=== PATIENT | female | born 1995 | race Caucasian/White ===

== ENCOUNTER 2018-11-29 22:33 | Inpatient (IN) | payer BC, OTHER ==
[2018-11-30] MEDS ORDERED: CLINDAMYCIN 600MG PREMIX IVPB 600 MG/50 ML BAG IVPB ONE ×2 (01:21→01:48)
--- NOTE | 2018-11-30 01:30 | PDOC ---
History of Present Illness - General Chief Complaint: Redness To Affected Area Stated Complaint: LT ANKLE SWELLING/PAIN Time Seen by Provider: 11/30/18 00:40 - History of Present Illness Initial Comments: 11/30/18 01:39 23 y/o F no significant pmhx presents to the ED with 2 days of redness and swelling on her left leg after getting a tattoo. She began to feel a burning sensation in her left lower extremity where she got the tattoo done. She denies any fevers, chills, nausea, vomiting 11/30/18 01:43 Past History - Past Medical History Allergies/Adverse Reactions: Allergies Allergy/AdvReac Type Severity Reaction Status Date / Time No Known Allergies Allergy Verified 11/29/18 22:48 COPD: No - Suicide/Smoking/Psychosocial Hx Smoking History: Never smoked Review of Systems - Review of Systems Constitutional: No: Chills, Fever HEENTM: No: Eye Pain, Blurred Vision Respiratory: No: Cough, Shortness of Breath Cardiac (ROS): No: Chest Pain ABD/GI: No: Abdominal Distended, Diarrhea : No: Burning, Dysuria Musculoskeletal: No: Back Pain Integumentary: Yes: Symptoms Reported Neurological: No: Headache, Numbness *Physical Exam - Vital Signs Last Vital Signs Temp Pulse Resp BP Pulse Ox 99.4 F 115 H 20 183/95 H 96 11/29/18 22:48 11/29/18 22:48 11/29/18 22:48 11/29/18 22:48 11/29/18 22:48 - Physical Exam Comments: 11/30/18 02:06 GENERAL: Awake, alert, and fully oriented, in no acute distress HEAD: No signs of trauma, normocephalic, atraumatic EYES: PERRLA, EOMI, sclera anicteric, conjunctiva clear ENT: Auricles normal inspection, hearing grossly normal, nares patent, oropharynx clear without exudates. Moist mucosa NECK: Normal ROM, supple, no lymphadenopathy, JVD, or masses LUNGS: No distress, speaks full sentences, clear to auscultation bilaterally HEART: Regular rate and rhythm, normal S1 and S2, no murmurs, rubs or gallops, peripheral pulses normal and equal bilaterally. ABDOMEN: Soft, nontender, normoactive bowel sounds. No guarding, no rebound. No masses EXTREMITIES : Tattoo from ankle to lower knee. Surrounding erythema around tattoo edges. yellow crusting and blistering on freshly tattooed calf. Skin is warm to touch, ankle on left swollen compared or right. 2+ pedal pulses bilaterally. NEUROLOGICAL: Cranial nerves II through XII grossly intact. Normal speech, normal gait, no focal sensorimotor deficits SKIN: Warm, Dry, normal turgor, no rashes or lesions noted ED Treatment Course - LABORATORY CBC & Chemistry Diagram: 11/30/18 01:39 11/30/18 01:39 Medical Decision Making - Medical Decision Making 11/30/18 02:10 Cellulitis vs Impetigo cbc, cmp, wound culture, blood cultures. Meds: 1L NS, Clindamycin 600mg IV
[2018-11-30] MEDS ORDERED: SODIUM CHLORIDE 0.9% 500 ML INFUS.BAG IV ONE (01:42)
[2018-11-30 01:48] LABS: BASO % 0.4 % (0-2.0); EOS % 0.6 % (0-4.5); HEMATOCRIT 39.2 % (32.4-45.2); HEMOGLOBIN 13.3 GM/dL (10.7-15.3); LYMPH % 20.8 % (8-40); MCH 32.1 pg (25.7-33.7); MEAN CELL VOLUME 94.4 fl (80-96); MEAN PLT VOLUME 9.3 fl (7.5-11.1); MONO % 10.7 % (3.8-10.2); NEUT % 67.5 % (42.8-82.8); PLATELET COUNT 266 K/MM3 (134-434); RBC 4.15 M/mm3 (3.60-5.2); RDW 12.3 % (11.6-15.6)
--- NOTE | 2018-11-30 01:51 | PDOC ---
Attending Attestation - Resident Resident Name: Clovis Fuentes - ED Attending Attestation I have performed the following: I have examined & evaluated the patient, The case was reviewed & discussed with the resident, I agree w/resident's findings & plan - HPI HPI: 11/30/18 01:49 see resident hpi - Physicial Exam PE: 11/30/18 01:49 agree with resident exam - Medical Decision Making 11/30/18 01:50 23-year-old female status post left lower leg tattoo now with pain redness and drainage Clindamycin 600 mg IV piggyback given In light of swelling and extending redness patient will be admitted to medical service
[2018-11-30 02:16] LABS: ALBUMIN 3.4 g/dl (3.4-5.0); BILIRUBIN,TOTAL 0.6 mg/dL (0.2-1); BLOOD UREA NITROGEN 7.8 mg/dL (7-18); CALCIUM 8.7 mg/dL (8.5-10.1); CREATININE 0.8 mg/dL (0.55-1.3); POTASSIUM 3.5 mmol/L (3.5-5.1); TOT PROT 6.9 g/dl (6.4-8.2)
[2018-11-30] MEDS ORDERED: VANCOMYCIN 1 GM in D5W (PRE-DOCKED) 1,000 MG/250 ML IVPB ONE (03:32)
--- NOTE | 2018-11-30 03:37 | HP ---
CHIEF COMPLAINT: PCP: Dr. Perry HISTORY OF PRESENT ILLNESS: 23 y/o/f here for swelling, blistering, and redness of her left calf. Patient had a tattoo done on Thursday. 24 hours later she started to notice some burning in her leg. Today she noticed blisters around the tattoo and had difficulty walking due to pain. The pain is worse when she walks but during interview the pain is under control as the patient is not moving her leg. She has not applied any creams or ointments to her leg since getting the tattoo. She has noticed some watery discharge but no pus or bloody drainage. She states her left calf feels tight. Patient denies any trauma to the area. She states she has difficulty bending her left knee due to the pain now. Patient denies any fever, chills, N/V/D, abd pain, chest pain, or dizziness. Patient denies any history of eczema or rashes. ER course was notable for: (1) Clindamycin 600mg IV given Recent Travel: denies PAST MEDICAL HISTORY: denies PAST SURGICAL HISTORY: Tonsillectomy Social History: Smoking: denies Alcohol: occasional EtOH use Drugs: Marijuana use Allergies No Known Allergies Allergy (Verified 11/29/18 22:48) HOME MEDICATIONS: REVIEW OF SYSTEMS CONSTITUTIONAL: Absent: fever, chills, diaphoresis, generalized weakness, malaise, loss of appetite, weight change HEENT: Absent: rhinorrhea, nasal congestion, throat pain, throat swelling, difficulty swallowing, mouth swelling, ear pain, eye pain, visual changes CARDIOVASCULAR: Absent: chest pain, syncope, palpitations, irregular heart rate, lightheadedness , peripheral edema RESPIRATORY: Absent: cough, shortness of breath, dyspnea with exertion, orthopnea, wheezing, stridor, hemoptysis GASTROINTESTINAL: Absent: abdominal pain, abdominal distension, nausea, vomiting, diarrhea, constipation, melena, hematochezia MUSCULOSKELETAL: Left knee pain, left calf/ankle swelling Absent: back pain, neck pain SKIN: redness and blistering of left calf Absent: itching, pallor NEUROLOGIC: Absent: headache, focal weakness or paresthesias, dizziness, unsteady gait, seizure, mental status changes PHYSICAL EXAMINATION Vital Signs - 24 hr 11/29/18 22:48 Temperature 99.4 F Pulse Rate 115 H Respiratory 20 Rate Blood Pressure 183/95 H O2 Sat by Pulse 96 Oximetry (%) UPDATED VITALS: 82HR, 131/85 BP, 100% O2 GENERAL: Awake, alert, and fully oriented, in no acute distress. HEAD: Normal with no signs of trauma. EYES: extraocular movements intact, sclera anicteric, conjunctiva clear. No lid lag. EARS, NOSE, THROAT: Ears normal, nares patent, Moist mucous membranes. NECK: Normal range of motion, supple without lymphadenopathy, JVD, or masses. LUNGS: Breath sounds equal, clear to auscultation bilaterally. No wheezes, and no crackles. No accessory muscle use. HEART: Regular rate and rhythm, normal S1 and S2 without murmur, rub or gallop. ABDOMEN: Soft, nontender, not distended, normoactive bowel sounds, no guarding, no rebound, no masses. No hepatomegaly or splenomegaly. MUSCULOSKELETAL: decreased active and passive ROM of left knee and ankle secondary to pain. mild swelling of left knee with overlying erythema. UPPER EXTREMITIES: 2+ pulses, warm, well-perfused. No cyanosis. No clubbing. No peripheral edema. LOWER EXTREMITIES: 2+ pulses, warm, well-perfused. Tattoo from knee to ankle with surrounding erythema mild tenderness of medial aspect of left calf, no tenderness of right calf. Swelling of left calf compared to right calf. NEUROLOGICAL: Normal speech PSYCHIATRIC: Cooperative. Good eye contact. Appropriate mood and affect. SKIN: Warm, dry, normal turgor, normal cap refill. Swelling and redness of medial aspect of left calf extending to posterior aspect of left thigh. Crusted blisters with minimal serous drainage noted on medial aspect of left calf. Laboratory Results - last 24 hr 11/30/18 11/30/18 01:39 01:39 WBC 13.0 H RBC 4.15 Hgb 13.3 Hct 39.2 MCV 94.4 MCH 32.1 MCHC 34.0 RDW 12.3 Plt Count 266 MPV 9.3 Absolute Neuts (auto) 8.8 H Neutrophils % 67.5 Lymphocytes % 20.8 Monocytes % 10.7 H Eosinophils % 0.6 Basophils % 0.4 Nucleated RBC % 0 Sodium 140 Potassium 3.5 Chloride 104 Carbon Dioxide 27 Anion Gap 9 BUN 7.8 Creatinine 0.8 Est GFR (CKD-EPI)AfAm 122.14 Est GFR (CKD-EPI)NonAf 105.39 Random Glucose 137 H Calcium 8.7 Total Bilirubin 0.6 AST 19 ALT 22 Alkaline Phosphatase 80 Total Protein 6.9 Albumin 3.4 ASSESSMENT/PLAN: 23 y/o/f with no significant PMHx here for pain, swelling and blistering of her left calf after getting a tattoo. 1) Cellulitis - likely secondary to infection from new tattoo -Clinda 600mg IV given during ED course -Continue abx coverage with Rocephin and Vancomycin -ID consulted -Follow Blood, MRSA, and Wound culture 2)Leukocytosis - likely reactive to cellulitis -monitor CBC -patient started on abx 3) Calf pain - likely secondary to cellulitis but concern for DVT -Duplex U/S to rule out DVT 4)FEN -Oral hydration -Follow BMP 5) Prophylaxis -Lovenox 40mg SQ daily 6)Disposition -admitted to med/surg Visit type - Emergency Visit Emergency Visit: Yes ED Registration Date: 11/30/18 Care time: The patient presented to the Emergency Department on the above date and was hospitalized for further evaluation of their emergent condition. - New Patient This patient is new to me today: Yes Date on this admission: 12/01/18 - Critical Care Critical Care patient: No ATTENDING PHYSICIAN STATEMENT I saw and evaluated the patient. I reviewed the resident's note and discussed the case with the resident. I agree with the resident's findings and plan as documented. SUBJECTIVE: OBJECTIVE: ASSESSMENT AND PLAN:
[2018-11-30] MEDS ORDERED: VANCOMYCIN 1 GRAM (PRE-DOCKED) 1,000 MG/250 ML BAG IVPB ONE (04:04)
[2018-11-30] MEDS ORDERED: ENOXAPARIN NA (PORCINE) 40 MG/0.4 ML DISP.SYRIN SQ ONE (04:04)
[2018-11-30] MEDS ORDERED: CEFTRIAXONE 1 GM/50 ML BAG ONE (04:05)
[2018-11-30] MEDS: CEFTRIAXONE 1 GM in DEXTROSE 5%-WATER - 100 ML IVPB SCH ×2 (04:19→10:52)
--- NOTE | 2018-11-30 04:31 | PN ---
Teaching Attending Note Name of Resident: Marleni Sagastume ATTENDING PHYSICIAN STATEMENT I saw and evaluated the patient. I reviewed the resident's note and discussed the case with the resident. I agree with the resident's findings and plan as documented. SUBJECTIVE: 23 yo woman underwent left leg tattoo this thursday and shortly after developed blisters and erythema. Denied significant fevers or chills. Received clindamycin in ER. OBJECTIVE: Last Vital Signs Temp Pulse Resp BP Pulse Ox 99.4 F 115 H 20 183/95 H 96 11/29/18 22:48 11/29/18 22:48 11/29/18 22:48 11/29/18 22:48 11/29/18 22:48 heent not in acute distress heent- moist oral membranes, sclera nonicteric skin- left leg tattoos, medial leg erythema, blisters Abnormal Lab Results 11/30/18 11/30/18 01:39 01:39 WBC 13.0 H Absolute Neuts (auto) 8.8 H Monocytes % 10.7 H Random Glucose 137 H ASSESSMENT AND PLAN: #sepsis from left leg cellulitis s/p tattoo. +leukocytosis -med/surg -iv fluids -lactate -blood cultures -serum test -vancomcyin -ceftriaxone -id to approve antibiotics dvt ppx
[2018-11-30] MEDS: SODIUM CHLORIDE 1,000 ML IV SCH ×2 (05:41→18:25)
[2018-11-30 07:00] LABS: HEMATOCRIT 41.8 % (32.4-45.2); HEMOGLOBIN 14.5 GM/dL (10.7-15.3); MCH 32.9 pg (25.7-33.7); MCHC 34.7 g/dl (32.0-36.0); MEAN CELL VOLUME 94.8 fl (80-96); MEAN PLT VOLUME 8.9 fl (7.5-11.1); PLATELET COUNT 256 K/MM3 (134-434); RBC 4.41 M/mm3 (3.60-5.2); RDW 12.4 % (11.6-15.6); WHITE BLOOD COUNT 9.6 K/mm3 (4.0-10.0)
[2018-11-30 07:22] LABS: BLOOD UREA NITROGEN 5.9 mg/dL (7-18); CALCIUM 8.5 mg/dL (8.5-10.1); CREATININE 0.8 mg/dL (0.55-1.3); MAGNESIUM 2.4 mg/dL (1.8-2.4); PHOSPHOROUS 3.4 mg/dL (2.5-4.9); POTASSIUM 3.6 mmol/L (3.5-5.1)
[2018-11-30] MEDS: ENOXAPARIN NA (PORCINE) 40 MG/0.4 ML DISP.SYRIN SQ SCH (10:51)
--- NOTE | 2018-11-30 10:57 | EKG ---
Test Reason : Blood Pressure : / mmHG Vent. Rate : 083 BPM Atrial Rate : 083 BPM P-R Int : 142 ms QRS Dur : 080 ms QT Int : 374 ms P-R-T Axes : 059 028 020 degrees QTc Int : 439 ms NORMAL SINUS RHYTHM NORMAL ECG NO PREVIOUS ECGS AVAILABLE Confirmed by Miller Fritz ([id number]) on 11/30/2018 10:56:58 AM Referred By: Confirmed By:Miller Fritz
--- NOTE | 2018-11-30 11:45 | PN ---
Progress Note (short form) - Note Progress Note: ID CONSULTATION DICTATED CELLULITIS/ LYMPHANGITIS L LE LEUKOCYTOSIS R/O SEPSIS AWAIT C/S EMPIRIC CEFTRIAXONE/ VANCOMYCIN
--- NOTE | 2018-11-30 13:55 | PN ---
Physical Exam: SUBJECTIVE: Patient seen and examined at the bedside. The patient is anxious about her infection. Denies feeling feverish, SOB, or diaphoretic. OBJECTIVE: Vital Signs Period Temp Pulse Resp BP Sys/Helms Pulse Ox Last 24 Hr 98.0 F-99.4 F 78-115 18-20 127-183/65-95 96-100 GENERAL: The patient is awake, alert, and fully oriented, in no acute distress. HEAD: Normal with no signs of trauma. EYES: PERRL, extraocular movements intact, sclera anicteric, conjunctiva clear. No ptosis. ENT: Ears normal, nares patent, oropharynx clear without exudates, moist mucous membranes. NECK: Trachea midline, full range of motion, supple. LUNGS: Breath sounds equal, clear to auscultation bilaterally, no wheezes, no crackles, no accessory muscle use. HEART: Regular rate and rhythm, S1, S2 without murmur, rub or gallop. ABDOMEN: Soft, nontender, nondistended, normoactive bowel sounds, no guarding. EXTREMITIES: 2+ pulses, warm, well-perfused, 1+ non pitting edema of LLE with erythema of medial lower leg and raised/ crusted areas. Erythema and tenderness extends up to medial thigh, border was outlined with marker on rounds. Sensation intact bilaterally, movement of LLE limited by pain NEUROLOGICAL: Cranial nerves II through XII grossly intact. Normal speech, gait not observed. PSYCH: Normal mood, normal affect. SKIN: erythema with warmth and crusted areas on medial L lower leg. Erythema extending to medial thigh approximately 3inches up, boundary was marked with marker on rounds Laboratory Results - last 24 hr 11/30/18 11/30/18 11/30/18 01:39 01:39 01:39 WBC 13.0 H RBC 4.15 Hgb 13.3 Hct 39.2 MCV 94.4 MCH 32.1 MCHC 34.0 RDW 12.3 Plt Count 266 MPV 9.3 Absolute Neuts (auto) 8.8 H Neutrophils % 67.5 Lymphocytes % 20.8 Monocytes % 10.7 H Eosinophils % 0.6 Basophils % 0.4 Nucleated RBC % 0 Sodium 140 Potassium 3.5 Chloride 104 Carbon Dioxide 27 Anion Gap 9 BUN 7.8 Creatinine 0.8 Est GFR (CKD-EPI)AfAm 122.14 Est GFR (CKD-EPI)NonAf 105.39 Random Glucose 137 H Hemoglobin A1c % Lactic Acid Calcium 8.7 Phosphorus Magnesium Total Bilirubin 0.6 AST 19 ALT 22 Alkaline Phosphatase 80 Total Protein 6.9 Albumin 3.4 Serum , Qual Negative 11/30/18 11/30/18 11/30/18 06:30 06:30 08:03 WBC 9.6 RBC 4.41 Hgb 14.5 Hct 41.8 MCV 94.8 MCH 32.9 MCHC 34.7 RDW 12.4 Plt Count 256 MPV 8.9 Absolute Neuts (auto) Neutrophils % Lymphocytes % Monocytes % Eosinophils % Basophils % Nucleated RBC % Sodium 140 Potassium 3.6 Chloride 107 Carbon Dioxide 26 Anion Gap 7 L BUN 5.9 L Creatinine 0.8 Est GFR (CKD-EPI)AfAm 122.14 Est GFR (CKD-EPI)NonAf 105.39 Random Glucose 101 Hemoglobin A1c % Lactic Acid 0.8 Calcium 8.5 Phosphorus 3.4 Magnesium 2.4 Total Bilirubin AST ALT Alkaline Phosphatase Total Protein Albumin Serum , Qual 11/30/18 08:03 WBC RBC Hgb Hct MCV MCH MCHC RDW Plt Count MPV Absolute Neuts (auto) Neutrophils % Lymphocytes % Monocytes % Eosinophils % Basophils % Nucleated RBC % Sodium Potassium Chloride Carbon Dioxide Anion Gap BUN Creatinine Est GFR (CKD-EPI)AfAm Est GFR (CKD-EPI)NonAf Random Glucose Hemoglobin A1c % 5.0 Lactic Acid Calcium Phosphorus Magnesium Total Bilirubin AST ALT Alkaline Phosphatase Total Protein Albumin Serum , Qual Active Medications Generic Name Dose Route Start Last Admin Trade Name Freq PRN Reason Stop Dose Admin Enoxaparin Sodium 40 mg 11/30/18 10:00 11/30/18 10:51 Lovenox - SQ 40 mg DAILY MARY Administration Sodium Chloride 1,000 mls @ 100 mls/hr 11/30/18 05:15 11/30/18 05:41 Normal Saline - IV 100 mls/hr ASDIR MARY Administration Ceftriaxone Sodium 2 gm/ 100 mls @ 100 mls/hr 12/01/18 10:00 Dextrose IVPB DAILY MARY Protocol Vancomycin HCl 1,250 mg/ 250 mls @ 166.667 mls/hr 11/30/18 16:00 Dextrose IVPB Q12H MARY Protocol ASSESSMENT/PLAN: 23 y/o/f with no significant PMHx here for pain, swelling and blistering of her left calf after getting a tattoo. # Cellulitis - likely secondary to infection from new tattoo - Continue abx coverage with Rocephin and Vancomycin - vanc trough before 4th dose, goal 10-15 for soft tissue infections - ID, Dr. Friend following, appreciate recommendations - Follow Blood, MRSA, and Wound culture # Leukocytosis - resolved # Calf pain - likely secondary to cellulitis but concern for DVT -Duplex U/S > no evidence of DVT # FEN -Oral hydration -Follow BMP # Prophylaxis -Lovenox 40mg SQ daily # Disposition -admitted to med/surg Visit type - Emergency Visit Emergency Visit: Yes ED Registration Date: 11/30/18 Care time: The patient presented to the Emergency Department on the above date and was hospitalized for further evaluation of their emergent condition. - New Patient This patient is new to me today: Yes Date on this admission: 11/30/18 - Critical Care Critical Care patient: No - Discharge Referral Referred to [facility] Med P.C.: No ATTENDING PHYSICIAN STATEMENT I saw and evaluated the patient. I reviewed the resident's note and discussed the case with the resident. I agree with the resident's findings and plan as documented. SUBJECTIVE: OBJECTIVE: ASSESSMENT AND PLAN:
--- NOTE | 2018-11-30 15:56 | PN ---
Teaching Attending Note Name of Resident: Ree Way ATTENDING PHYSICIAN STATEMENT I saw and evaluated the patient. I reviewed the resident's note and discussed the case with the resident. I agree with the resident's findings and plan as documented. SUBJECTIVE: No fever or chills. NO POTTER . no SOB . pain in L leg OBJECTIVE: NAD CV : RRR Lungs: CTAB Abd: soft, NT, ND , NL BS Ext : L leg with medial edema , erythema, and increased warmth with crusted areas. erythema extends medially on lower thigh. nl sensation in foot and nl movement. SP 2+ .R leg and foot NL ASSESSMENT AND PLAN: 23 y/o lady with no significant reported hx who presented with erythema and painin LLE after a tattoo and was found tohave LLE cellulitis 1- LLE cellulitis : no signs of sepsis . No signs of compartment sx - cont ceftriaxone and vanco - vanco trough before 4th dose. goal 10-15 - follow blood cx - A1c noted 2- DVT PX : Lovenox HLOC
[2018-11-30 17:35] LABS: METHADONE, UR NEGATIVE ng/ml (CUTOFF=300); OPIATES, URI NEGATIVE ng/ml (CUTOFF=300); PHENCYCLIDINE,URINE NEGATIVE ng/ml (CUTOFF=25); URINE AMPHETAMINES NEGATIVE ng/ml (CUTOFF=500); URINE BARBITURATES NEGATIVE ng/ml (CUTOFF=200); URINE BENZODIAZEPINES NEGATIVE ng/ml (CUTOFF=200)
[2018-11-30 17:39] LABS: COCAINE, UR POSITIVE ng/ml (CUTOFF=300)
[2018-11-30] MEDS: VANCOMYCIN 1,250 MG in DEXTROSE 5%-WATER - 250 ML IVPB SCH (18:30)
[2018-11-30 19:59] VITALS: BMI 33.7
[2018-12-01] MEDS: VANCOMYCIN 1,250 MG in DEXTROSE 5%-WATER - 250 ML IVPB SCH ×3 (04:43→18:27)
[2018-12-01] MEDS: SODIUM CHLORIDE 1,000 ML IV SCH ×2 (04:44→18:15)
[2018-12-01 07:45] LABS: BASO % 0.6 % (0-2.0); EOS % 1.7 % (0-4.5); HEMATOCRIT 35.9 % (32.4-45.2); HEMOGLOBIN 12.6 GM/dL (10.7-15.3); MCH 33.1 pg (25.7-33.7); MCHC 35.1 g/dl (32.0-36.0); MEAN CELL VOLUME 94.2 fl (80-96); MONO % 8.1 % (3.8-10.2); NEUT % 66.6 % (42.8-82.8); PLATELET COUNT 247 K/MM3 (134-434); RBC 3.81 M/mm3 (3.60-5.2); RDW 12.1 % (11.6-15.6); WHITE BLOOD COUNT 8.6 K/mm3 (4.0-10.0)
[2018-12-01 07:57] LABS: BLOOD UREA NITROGEN 6.3 mg/dL (7-18); CALCIUM 8.5 mg/dL (8.5-10.1); CREATININE 0.7 mg/dL (0.55-1.3); POTASSIUM 3.8 mmol/L (3.5-5.1)
--- NOTE | 2018-12-01 08:40 | PN ---
Teaching Attending Note Name of Resident: Ree Way ATTENDING PHYSICIAN STATEMENT I saw and evaluated the patient. I reviewed the resident's note and discussed the case with the resident. I agree with the resident's findings and plan as documented. SUBJECTIVE: Patient is comfortable OBJECTIVE: Vital Signs Temperature 97.6 F 12/01/18 05:53 Pulse Rate 77 12/01/18 05:53 Respiratory Rate 18 12/01/18 05:53 Blood Pressure 133/70 12/01/18 05:53 O2 Sat by Pulse Oximetry (%) 99 11/30/18 21:00 GENERAL: The patient is awake, alert, and fully oriented, in no acute distress. HEAD: Normal with no signs of trauma. EYES: PERRL, extraocular movements intact, sclera anicteric, conjunctiva clear. ENT: Ears normal, oropharynx clear without exudates, moist mucous membranes. NECK: Trachea midline, full range of motion, supple. LUNGS: Breath sounds equal, clear to auscultation bilaterally, no wheezes, no crackles, no accessory muscle use. HEART: Regular rate and rhythm, S1, S2 without murmur, rub or gallop. ABDOMEN: Soft, nontender, nondistended, normoactive bowel sounds, no guarding, no rebound, no hepatosplenomegaly, no masses. EXTREMITIES: 2+ pulses, warm, well-perfused, lle cellulitis NEUROLOGICAL: Cranial nerves II through XII grossly intact. Normal speech, gait not observed. PSYCH: Normal mood, normal affect. SKIN: Warm, dry, normal turgor, tattoo on the lle positive for cellulitis CBCD WBC 8.6 K/mm3 (4.0-10.0) 12/01/18 07:00 RBC 3.81 M/mm3 (3.60-5.2) 12/01/18 07:00 Hgb 12.6 GM/dL (10.7-15.3) 12/01/18 07:00 Hct 35.9 % (32.4-45.2) 12/01/18 07:00 MCV 94.2 fl (80-96) 12/01/18 07:00 MCHC 35.1 g/dl (32.0-36.0) 12/01/18 07:00 RDW 12.1 % (11.6-15.6) 12/01/18 07:00 Plt Count 247 K/MM3 (134-434) 12/01/18 07:00 MPV 9.0 fl (7.5-11.1) 12/01/18 07:00 CMP Sodium 140 mmol/L (136-145) 12/01/18 07:00 Potassium 3.8 mmol/L (3.5-5.1) 12/01/18 07:00 Chloride 107 mmol/L (98-107) 12/01/18 07:00 Carbon Dioxide 29 mmol/L (21-32) 12/01/18 07:00 Anion Gap 5 MMOL/L (8-16) L 12/01/18 07:00 BUN 6.3 mg/dL (7-18) L 12/01/18 07:00 Creatinine 0.7 mg/dL (0.55-1.3) 12/01/18 07:00 Random Glucose 105 mg/dL (74-106) 12/01/18 07:00 Calcium 8.5 mg/dL (8.5-10.1) 12/01/18 07:00 Total Bilirubin 0.6 mg/dL (0.2-1) 11/30/18 01:39 AST 19 U/L (15-37) 11/30/18 01:39 ALT 22 U/L (13-61) 11/30/18 01:39 Alkaline Phosphatase 80 U/L (45-117) 11/30/18 01:39 Total Protein 6.9 g/dl (6.4-8.2) 11/30/18 01:39 Albumin 3.4 g/dl (3.4-5.0) 11/30/18 01:39 Current Medications Generic Name Dose Route Start Last Admin Trade Name Freq PRN Reason Stop Dose Admin Enoxaparin Sodium 40 mg 11/30/18 10:00 11/30/18 10:51 Lovenox - SQ 40 mg DAILY MARY Administration Sodium Chloride 1,000 mls @ 100 mls/hr 11/30/18 05:15 12/01/18 04:44 Normal Saline - IV 100 mls/hr ASDIR MARY Administration Ceftriaxone Sodium 2 gm/ 100 mls @ 100 mls/hr 12/01/18 10:00 Dextrose IVPB DAILY MARY Protocol Vancomycin HCl 1,250 mg/ 250 mls @ 166.667 mls/hr 11/30/18 16:00 12/01/18 04: 43 Dextrose IVPB 166.667 mls/hr Q12H MARY Administration Protocol Home Medications Medication Instructions Recorded NK [No Known Home Medication] 11/30/18 Microbiology 11/30/18 01:27 Leg - Left Lower Gram Stain - Final 11/30/18 01:27 Leg - Left Lower Wound Culture - Preliminary Presumptive Ps Aeruginosa Proteus Species Staphylococcus Latex Coag Pos Diphtheroid/Corynebacterium Group D Strep Or Entero Coccus 11/30/18 01:50 Blood - Peripheral Venous Blood Culture - Preliminary NO GROWTH OBTAINED AFTER 24 HOURS, INCUBATION TO CONTINUE FOR 4 DAYS. 11/30/18 01:50 Blood - Peripheral Venous Blood Culture - Preliminary NO GROWTH OBTAINED AFTER 24 HOURS, INCUBATION TO CONTINUE FOR 4 DAYS. ASSESSMENT AND PLAN: Patient is a 23yo female with no significant PMHx who presented with LLE cellulitis post tattoo. # acute LLE cellulitis : on IV antibiotics vanco and rocephin. continue , id on case DVT PX : Lovenox possible dc in am.
[2018-12-01] MEDS ORDERED: DEXTROSE 5%-WATER 100 ML IVPB ONE (10:43)
[2018-12-01] MEDS: ENOXAPARIN NA (PORCINE) 40 MG/0.4 ML DISP.SYRIN SQ SCH (10:49)
[2018-12-01] MEDS: CEFTRIAXONE 2 GM in DEXTROSE 5%-WATER 100 ML IVPB SCH (10:49)
--- NOTE | 2018-12-01 16:14 | PN ---
Progress Note, Physician History of Present Illness: REPORTS LESS LEG PAIN NO C/O FEVER/ CHILLS BC (-) WOUND C/S POLYMICROBIAL - Current Medication List Current Medications: Active Medications Enoxaparin Sodium (Lovenox -) 40 mg SQ DAILY MARY Last Admin: 12/01/18 10:49 Dose: 40 mg Sodium Chloride (Normal Saline -) 1,000 mls @ 100 mls/hr IV ASDIR MARY Last Admin: 12/01/18 04:44 Dose: 100 mls/hr Ceftriaxone Sodium 2 gm/ (Dextrose) 100 mls @ 100 mls/hr IVPB DAILY MARY; Protocol Last Admin: 12/01/18 10:49 Dose: 100 mls/hr Vancomycin HCl 1,250 mg/ (Dextrose) 250 mls @ 166.667 mls/hr IVPB Q12H MARY; Protocol Last Admin: 12/01/18 04:43 Dose: 166.667 mls/hr - Objective Vital Signs: Vital Signs Temperature 98.6 F 12/01/18 14:00 Pulse Rate 84 12/01/18 14:00 Respiratory Rate 20 12/01/18 14:00 Blood Pressure 135/65 12/01/18 14:00 O2 Sat by Pulse Oximetry (%) 99 11/30/18 21:00 Constitutional: Yes: No Distress Eyes: Yes: Conjunctiva Clear Cardiovascular: Yes: Regular Rate and Rhythm, S1, S2 Respiratory: Yes: CTA Bilaterally Gastrointestinal: Yes: Normal Bowel Sounds, Soft. No: Tenderness Extremities: Yes: Other (DECREASED ERYTHEMA L LE LYMPHANGITIS INMPROVED) Labs: CBC, BMP 12/01/18 07:00 12/01/18 07:00 Assessment/Plan CELLULITIS L LE IMPROVED + WOUND C/S SUSPECT SKIN COLONIZATION CONTINUE VANCOMYCIN CEFTRIAXONE
[2018-12-01] MEDS ORDERED: PT OWN MED DRAWER 7, Y5N ONE (16:30)
--- NOTE | 2018-12-01 17:05 | PN ---
Physical Exam: SUBJECTIVE: Patient seen and examined OBJECTIVE: patient seen and examined at the bedside, no acute events overnight. Patient feels she is doing better. Vital Signs Period Temp Pulse Resp BP Sys/Helms Pulse Ox Last 24 Hr 97.6 F-98.6 F 72-90 18-20 124-135/65-77 99-99 GENERAL: The patient is awake, alert, and fully oriented, in no acute distress. HEAD: Normal with no signs of trauma. EYES: PERRL, extraocular movements intact, sclera anicteric, conjunctiva clear. No ptosis. ENT: Ears normal, nares patent, oropharynx clear without exudates, moist mucous membranes. NECK: Trachea midline, full range of motion, supple. LUNGS: Breath sounds equal, clear to auscultation bilaterally, no wheezes, no crackles, no accessory muscle use. HEART: Regular rate and rhythm, S1, S2 without murmur, rub or gallop. ABDOMEN: Soft, nontender, nondistended, normoactive bowel sounds, no guarding. EXTREMITIES: 2+ pulses, warm, well-perfused, 1+ non pitting edema of LLE with erythema of medial lower leg and raised/ crusted areas. Area of erythema and tenderness is improving. Sensation intact bilaterally, movement of LLE limited by pain NEUROLOGICAL: Cranial nerves II through XII grossly intact. Normal speech, gait not observed. PSYCH: Normal mood, normal affect. SKIN: erythema with warmth and crusted areas on medial L lower leg. Erythema extending to medial thigh, improving. Laboratory Results - last 24 hr 11/30/18 12/01/18 12/01/18 16:50 07:00 07:00 WBC 8.6 RBC 3.81 Hgb 12.6 Hct 35.9 MCV 94.2 MCH 33.1 MCHC 35.1 RDW 12.1 Plt Count 247 MPV 9.0 Absolute Neuts (auto) 5.7 Neutrophils % 66.6 Lymphocytes % 23.0 Monocytes % 8.1 Eosinophils % 1.7 D Basophils % 0.6 Nucleated RBC % 0 Sodium 140 Potassium 3.8 Chloride 107 Carbon Dioxide 29 Anion Gap 5 L BUN 6.3 L Creatinine 0.7 Est GFR (CKD-EPI)AfAm 143.54 Est GFR (CKD-EPI)NonAf 123.85 Random Glucose 105 Calcium 8.5 Opiates Screen Negative Methadone Screen Negative Barbiturate Screen Negative Phencyclidine Screen Negative Ur Amphetamines Screen Negative MDMA (Ecstasy) Screen Negative Benzodiazepines Screen Negative Cocaine Screen Positive A* U Marijuana (THC) Screen Positive A* Active Medications Generic Name Dose Route Start Last Admin Trade Name Malissa PRN Reason Stop Dose Admin Enoxaparin Sodium 40 mg 11/30/18 10:00 12/01/18 10:49 Lovenox - SQ 40 mg DAILY MARY Administration Sodium Chloride 1,000 mls @ 100 mls/hr 11/30/18 05:15 12/01/18 04:44 Normal Saline - IV 100 mls/hr ASDIR MARY Administration Ceftriaxone Sodium 2 gm/ 100 mls @ 100 mls/hr 12/01/18 10:00 12/01/18 10:49 Dextrose IVPB 100 mls/hr DAILY MARY Administration Protocol Vancomycin HCl 1,250 mg/ 250 mls @ 166.667 mls/hr 11/30/18 16:00 12/01/18 04: 43 Dextrose IVPB 166.667 mls/hr Q12H MARY Administration Protocol ASSESSMENT/PLAN: 23 y/o/f with no significant PMHx here for pain, swelling and blistering of her left calf after getting a tattoo. # Cellulitis - likely secondary to infection from new tattoo - Continue abx coverage with Rocephin and Vancomycin - vanc trough before 4th dose, goal 10-15 for soft tissue infections - ID, Dr. Friend following, appreciate recommendations - Follow Blood, MRSA, and Wound culture -prelim wound culture results growing: - pseudamonas, proteus, staph latex coagulase +, diphthiroid/ corynebacteria, and group d strep/ enterococcus - patient improving on current antibiotic regimen, spoke to Dr. Friend and some culture results may be result of skin saul/ contamination - continue current IVabx regimen and observe # Leukocytosis - resolved # Calf pain - likely secondary to cellulitis but concern for DVT -Duplex U/S > no evidence of DVT # FEN -Oral hydration -Follow BMP # Prophylaxis -Lovenox 40mg SQ daily # Disposition -admitted to med/surg Visit type - Emergency Visit Emergency Visit: Yes ED Registration Date: 11/30/18 Care time: The patient presented to the Emergency Department on the above date and was hospitalized for further evaluation of their emergent condition. - New Patient This patient is new to me today: No - Critical Care Critical Care patient: No - Discharge Referral [facility]erred to [facility] Med P.C.: No ATTENDING PHYSICIAN STATEMENT I saw and evaluated the patient. I reviewed the resident's note and discussed the case with the resident. I agree with the resident's findings and plan as documented. SUBJECTIVE: OBJECTIVE: ASSESSMENT AND PLAN:
[2018-12-02] MEDS: VANCOMYCIN 1,250 MG in DEXTROSE 5%-WATER - 250 ML IVPB SCH ×2 (03:18→15:30)
[2018-12-02 09:05] LABS: BLOOD UREA NITROGEN 7.9 mg/dL (7-18); CALCIUM 8.6 mg/dL (8.5-10.1); CREATININE 0.7 mg/dL (0.55-1.3); POTASSIUM 3.9 mmol/L (3.5-5.1)
[2018-12-02 09:10] LABS: BASO % 0.3 % (0-2.0); EOS % 1.3 % (0-4.5); HEMATOCRIT 38.2 % (32.4-45.2); HEMOGLOBIN 13.3 GM/dL (10.7-15.3); LYMPH % 16.8 % (8-40); MCH 32.6 pg (25.7-33.7); MCHC 34.8 g/dl (32.0-36.0); MEAN CELL VOLUME 93.8 fl (80-96); MEAN PLT VOLUME 9.1 fl (7.5-11.1); MONO % 7.5 % (3.8-10.2); NEUT % 74.1 % (42.8-82.8); PLATELET COUNT 259 K/MM3 (134-434); RBC 4.07 M/mm3 (3.60-5.2); RDW 12.4 % (11.6-15.6); WHITE BLOOD COUNT 10.9 K/mm3 (4.0-10.0)
[2018-12-02] MEDS ORDERED: DEXTROSE 5%-WATER 100 ML IVPB ONE (10:06)
[2018-12-02] MEDS: CEFTRIAXONE 2 GM in DEXTROSE 5%-WATER 100 ML IVPB SCH (10:26)
[2018-12-02] MEDS: SODIUM CHLORIDE 1,000 ML IV SCH (10:26)
[2018-12-02] MEDS: ENOXAPARIN NA (PORCINE) 40 MG/0.4 ML DISP.SYRIN SQ SCH (10:27)
--- NOTE | 2018-12-02 10:34 | PN ---
Teaching Attending Note Name of Resident: Ree Way ATTENDING PHYSICIAN STATEMENT I saw and evaluated the patient. I reviewed the resident's note and discussed the case with the resident. I agree with the resident's findings and plan as documented. SUBJECTIVE: Patient is comfortable with no acute distress, no nausea or vomiting. OBJECTIVE: Vital Signs Temperature 98.0 F 12/02/18 06:00 Pulse Rate 75 12/02/18 06:00 Respiratory Rate 20 12/02/18 06:00 Blood Pressure 129/66 12/02/18 06:00 O2 Sat by Pulse Oximetry (%) 99 12/01/18 21:00 GENERAL: The patient is awake, alert, and fully oriented, in no acute distress. HEAD: Normal with no signs of trauma. EYES: PERRL, extraocular movements intact, sclera anicteric, conjunctiva clear. ENT: Ears normal, oropharynx clear without exudates, moist mucous membranes. NECK: Trachea midline, full range of motion, supple. LUNGS: Breath sounds equal, clear to auscultation bilaterally, no wheezes, no crackles, no accessory muscle use. HEART: Regular rate and rhythm, S1, S2 without murmur, rub or gallop. ABDOMEN: Soft, NT, ND, normoactive bowel sounds, no guarding, no rebound, no hepatosplenomegaly, no masses. EXTREMITIES: 2+ pulses, warm, well-perfused, lle cellulitis NEUROLOGICAL: Cranial nerves II through XII grossly intact. Normal speech, gait not observed. PSYCH: Normal mood, normal affect. SKIN: Warm, dry, normal turgor, tattoo on the lle positive for cellulitis CBCD WBC 10.9 K/mm3 (4.0-10.0) H 12/02/18 07:45 RBC 4.07 M/mm3 (3.60-5.2) 12/02/18 07:45 Hgb 13.3 GM/dL (10.7-15.3) 12/02/18 07:45 Hct 38.2 % (32.4-45.2) 12/02/18 07:45 MCV 93.8 fl (80-96) 12/02/18 07:45 MCHC 34.8 g/dl (32.0-36.0) 12/02/18 07:45 RDW 12.4 % (11.6-15.6) 12/02/18 07:45 Plt Count 259 K/MM3 (134-434) 12/02/18 07:45 MPV 9.1 fl (7.5-11.1) 12/02/18 07:45 CMP Sodium 140 mmol/L (136-145) 12/02/18 07:45 Potassium 3.9 mmol/L (3.5-5.1) 12/02/18 07:45 Chloride 107 mmol/L (98-107) 12/02/18 07:45 Carbon Dioxide 26 mmol/L (21-32) 12/02/18 07:45 Anion Gap 7 MMOL/L (8-16) L 12/02/18 07:45 BUN 7.9 mg/dL (7-18) 12/02/18 07:45 Creatinine 0.7 mg/dL (0.55-1.3) 12/02/18 07:45 Random Glucose 84 mg/dL (74-106) 12/02/18 07:45 Calcium 8.6 mg/dL (8.5-10.1) 12/02/18 07:45 Total Bilirubin 0.6 mg/dL (0.2-1) 11/30/18 01:39 AST 19 U/L (15-37) 11/30/18 01:39 ALT 22 U/L (13-61) 11/30/18 01:39 Alkaline Phosphatase 80 U/L (45-117) 11/30/18 01:39 Total Protein 6.9 g/dl (6.4-8.2) 11/30/18 01:39 Albumin 3.4 g/dl (3.4-5.0) 11/30/18 01:39 Current Medications Generic Name Dose Route Start Last Admin Trade Name Freq PRN Reason Stop Dose Admin Enoxaparin Sodium 40 mg 11/30/18 10:00 12/02/18 10:27 Lovenox - SQ 40 mg DAILY MARY Administration Sodium Chloride 1,000 mls @ 100 mls/hr 11/30/18 05:15 12/02/18 10:26 Normal Saline - IV 100 mls/hr ASDIR MARY Administration Ceftriaxone Sodium 2 gm/ 100 mls @ 100 mls/hr 12/01/18 10:00 12/02/18 10:26 Dextrose IVPB 100 mls/hr DAILY MARY Administration Protocol Vancomycin HCl 1,250 mg/ 250 mls @ 166.667 mls/hr 11/30/18 16:00 12/02/18 03: 18 Dextrose IVPB 166.667 mls/hr Q12H MARY Administration Protocol Home Medications Medication Instructions Recorded NK [No Known Home Medication] 11/30/18 Laboratory Tests 11/30/18 16:50 Opiates Screen Negative Methadone Screen Negative Barbiturate Screen Negative Phencyclidine Screen Negative Ur Amphetamines Screen Negative MDMA (Ecstasy) Screen Negative Benzodiazepines Screen Negative Cocaine Screen Positive A* U Marijuana (THC) Screen Positive A* Microbiology 11/30/18 01:50 Blood - Peripheral Venous Blood Culture - Preliminary NO GROWTH OBTAINED AFTER 48 HOURS, INCUBATION TO CONTINUE FOR 3 DAYS. 11/30/18 01:50 Blood - Peripheral Venous Blood Culture - Preliminary NO GROWTH OBTAINED AFTER 48 HOURS, INCUBATION TO CONTINUE FOR 3 DAYS. 11/30/18 01:27 Leg - Left Lower Gram Stain - Final 11/30/18 01:27 Leg - Left Lower Wound Culture - Preliminary Presumptive Ps Aeruginosa Proteus Species Staphylococcus Latex Coag Pos Diphtheroid/Corynebacterium Group D Strep Or Entero Coccus ASSESSMENT AND PLAN: Patient is a 23yo female with no significant PMHx who presented with LLE cellulitis post tattoo. # acute LLE cellulitis : on IV antibiotics vanco and rocephin, will switch to po antibiotic and discharge the patient on Keflex as per ID, discussed with for 7 more days, f/u with ID within a week. # Polysubstance abuse: cocaine and ,marijuana . DVT PX : Lovenox dc patient home.
--- NOTE | 2018-12-02 15:29 | PN ---
Progress Note, Physician History of Present Illness: NO C/O LEG PAIN NO C/O FEVER/ CHILLS BC (-) WOUND C/S POLYMICROBIAL - Current Medication List Current Medications: Active Medications Enoxaparin Sodium (Lovenox -) 40 mg SQ DAILY MARY Last Admin: 12/02/18 10:27 Dose: 40 mg Sodium Chloride (Normal Saline -) 1,000 mls @ 100 mls/hr IV ASDIR MARY Last Admin: 12/02/18 10:26 Dose: 100 mls/hr Ceftriaxone Sodium 2 gm/ (Dextrose) 100 mls @ 100 mls/hr IVPB DAILY MARY; Protocol Last Admin: 12/02/18 10:26 Dose: 100 mls/hr Vancomycin HCl 1,250 mg/ (Dextrose) 250 mls @ 166.667 mls/hr IVPB Q12H MARY; Protocol Last Admin: 12/02/18 03:18 Dose: 166.667 mls/hr - Objective Vital Signs: Vital Signs Temperature 98.0 F 12/02/18 06:00 Pulse Rate 75 12/02/18 06:00 Respiratory Rate 20 12/02/18 06:00 Blood Pressure 129/66 12/02/18 06:00 O2 Sat by Pulse Oximetry (%) 99 12/01/18 21:00 Constitutional: Yes: No Distress Eyes: Yes: Conjunctiva Clear Cardiovascular: Yes: Regular Rate and Rhythm, S1, S2 Respiratory: Yes: CTA Bilaterally Gastrointestinal: Yes: Normal Bowel Sounds, Soft. No: Tenderness Extremities: Yes: Other (ERYTHEMA/ LYMPHANGITIS L LE RESOLVED) Labs: CBC, BMP 12/02/18 07:45 12/02/18 07:45 Assessment/Plan CELLULITIS L LE RESOLVED + WOUND C/S SUSPECT SKIN COLONIZATION SUBSTITUTE KEFLEX 500MG PO Q6H X 7D
--- NOTE | 2018-12-02 15:57 | DS ---
Physical Exam: SUBJECTIVE: Patient seen and examined at the bedside, there were no acute events overnight, patient reports she is feeling improved, would like to go home. OBJECTIVE: Vital Signs Period Temp Pulse Resp BP Sys/Helms Pulse Ox Last 24 Hr 97.6 F-98.2 F 69-75 18-20 121-129/57-66 99 PHYSICAL EXAM GENERAL: The patient is awake, alert, and fully oriented, in no acute distress. HEAD: Normal with no signs of trauma. EYES: PERRL, extraocular movements intact, sclera anicteric, conjunctiva clear. No ptosis. ENT: Ears normal, nares patent, oropharynx clear without exudates, moist mucous membranes. NECK: Trachea midline, full range of motion, supple. LUNGS: Breath sounds equal, clear to auscultation bilaterally, no wheezes, no crackles, no accessory muscle use. HEART: Regular rate and rhythm, S1, S2 without murmur, rub or gallop. ABDOMEN: Soft, nontender, nondistended, normoactive bowel sounds, no guarding. EXTREMITIES: 2+ pulses, warm, well-perfused, 1+ non pitting edema of LLE with erythema of medial lower leg and raised/ crusted areas. Area of erythema and tenderness is improving. Sensation intact bilaterally, movement of LLE limited by pain NEUROLOGICAL: Cranial nerves II through XII grossly intact. Normal speech, gait not observed. PSYCH: Normal mood, normal affect. SKIN: erythema with warmth and crusted areas on medial L lower leg. Erythema extending to medial thigh, improving. LABS Laboratory Results - last 24 hr 12/01/18 12/02/18 12/02/18 15:10 07:45 07:45 WBC 10.9 H RBC 4.07 Hgb 13.3 Hct 38.2 MCV 93.8 MCH 32.6 MCHC 34.8 RDW 12.4 Plt Count 259 MPV 9.1 Absolute Neuts (auto) 8.1 H Neutrophils % 74.1 Lymphocytes % 16.8 D Monocytes % 7.5 Eosinophils % 1.3 Basophils % 0.3 Nucleated RBC % 0 Sodium 140 Potassium 3.9 Chloride 107 Carbon Dioxide 26 Anion Gap 7 L BUN 7.9 Creatinine 0.7 Est GFR (CKD-EPI)AfAm 143.54 Est GFR (CKD-EPI)NonAf 123.85 Random Glucose 84 Calcium 8.6 Vancomycin Pre-Dose 8.8 L HOSPITAL COURSE: Date of Admission:11/30/18 23 y/o/f with no significant PMHx here for pain, swelling and blistering of her left calf after getting a tattoo. The patient was admitted to the hospital for treatment of cellulitis with IV antibiotics. DVT was performed to r/o DVT as the patient was complaining of unilateral LE pain. There was no evidence of DVT on ultrasound. Enciso cultures were also obtained. On the day of admission the patient had a mild leukocytosis but it resolved after 1 day of antibiotics. She was treated with IV reocephin and vancomycin 4 two days. Her symptoms including the leukocytosis, redness, pain, and swelling all improved. She was discharged home with keflex 500mg q6h for 7 days and instructions to follow up with Dr. Friend, and the resident clinic within 1 week of discharge. Date of Discharge: 12/02/18 Minutes to complete discharge: 40 Discharge Summary Problems reviewed: Yes Reason For Visit: IMPETIGO Condition: Improved - Instructions Diet, Activity, Other Instructions: You were in the hospital because you had an infection in your left lower leg. While in the hospital you were treated with 2 days of IV antibiotics, blood and wound cultures were also taken. After 2 days the cultures grew bacteria and you improved on the IV antibiotics, we transition you to oral medications which you should continue to take for 7 more days. Please continue any home medications you take as prescribed with the following additions: -Keflex 500mg every 6 hours, for 7 days IF you are using a control pills, please use other preventive measures / back up plan with the oral contraceptive since can lower the effect of the control pills. We are providing you with a referral to Dr. Ramirez, a physician at the [facility] resident clinic, so that you can establish care with a primary care doctor. Please follow up within [address] Ramirez, [address] ([phone]). Follow up with ; infectious disease doctor within a week period. If you experience, fever, chills, symptoms of increased pain in the left lower leg, weakness, numbness or tingling in the left leg or foot, please return to the hospital immediately. Referrals: Anselmo Ramirez MD [Staff Physician] - 1 Week Miguel Friend MD [Staff Physician] - 1 Week Disposition: HOME - Home Medications Comprehensive Discharge Medication List: Ambulatory Orders Cephalexin [Keflex] 500 mg PO Q6H #28 capsule 12/02/18 This patient is new to me today: No Emergency Visit: Yes ED Registration Date: 11/30/18 Care time: The patient presented to the Emergency Department on the above date and was hospitalized for further evaluation of their emergent condition. Critical Care patient: No - Discharge Referral Referred to [facility] Med P.C.: No ATTENDING PHYSICIAN STATEMENT I saw and evaluated the patient. I reviewed the resident's note and discussed the case with the resident. I agree with the resident's findings and plan as documented. SUBJECTIVE: OBJECTIVE: ASSESSMENT AND PLAN:
[2018-12-02 18:40] VITALS: BP 125/59; PULSE 71; TEMP 98
== END 2018-12-02 19:13 | disposition home or self-care (01) | DRG 603 ==
LOC: JER 22:33 → JERBED 11-30 03:05 → J5S 11-30 17:34
PROVIDERS: ADMIT Internal Medicine; ATTEND Internal Medicine
DX: L03.116 Cellulitis of left lower limb (principal); D72.828 Other elevated white blood cell count; F19.10 Other psychoactive substance abuse, uncomplicated
CPT/HCPCS: 36415; 80048; 80053; 80307; 83036; 83605; 83735; 84100; 84703; 85025; 85027; 87040; 87070; 87186; 87205; 93005; 93010; 93970-TC; 99283-25; G0480; J7030